=== PATIENT | male | born 1990 | race Caucasian/White ===

== ENCOUNTER 2017-11-04 09:03 | Emergency (ER) | payer BC, OTHER ==
[~2017-11-04] VITALS: Ht 182.9 cm; Wt 90.0 kg
[~2017-11-04 09:03] MED LIST: NO HOME MEDS
[2017-11-04] MEDS ORDERED: epiNEPHrine 1 mg/ml inj SQ STA (09:06)
[2017-11-04] MEDS ORDERED: diphenhydrAMINE 50 mg/ml inj IM ONE (09:10)
[2017-11-04] MEDS ORDERED: ondansetron/PF 4mg/2ml inj IV ONE (09:10)
[2017-11-04] MEDS ORDERED: normal saline 1000ML IV soln IVB ONE (09:10)
[2017-11-04 09:37] VITALS: BP 117/60
[2017-11-04] MEDS ORDERED: famotidine/PF 10 mg/ml inj IV ONE (09:40)
[2017-11-04] MEDS ORDERED: EPIN0.3P8 IM (10:03)
== END 2017-11-04 10:30 | disposition home or self-care (01) ==
LOC: ER 09:04
DX: T78.2XXA Anaphylactic shock, unspecified, initial encounter (principal); T63.481A Toxic effect of venom of other arthropod, accidental (unintentional), initial encounter; Z98.890 Other specified postprocedural states; Z79.899 Other long term (current) drug therapy; Y92.89 Other specified places as the place of occurrence of the external cause
CPT/HCPCS: 96372; 96374; 96375; 99291; J0171; J1200; J2405; J3490; J7030

== ENCOUNTER 2022-08-07 09:40 | Outpatient (CLI) | payer BC, OTHER ==
[~2022-08-07 09:40] MED LIST changes: +EPIN0.3P8 IM
== END 2022-08-07 23:59 | disposition home or self-care (01) ==
LOC: CARD DIAG 09:40
PROVIDERS: ATTEND Internal Medicine Cardiovascular Disease
DX: I05.8 Other rheumatic mitral valve diseases (principal); R06.02 Shortness of breath; R07.89 Other chest pain; R00.2 Palpitations
CPT/HCPCS: 93306